=== PATIENT | male | born 1970 | race Caucasian/White ===

== ENCOUNTER 2018-10-06 21:02 | Observation (INO) ==
[2018-10-07] MEDS ORDERED: Acetaminophen 500 MG Tablet PO PRN (04:00)
[2018-10-07] MEDS ORDERED: Regadenoson Inj 0.4 MG/5 ML Syringe IV.PUSH ONE (09:25)
[2018-10-07] MEDS ORDERED: Diatrizoate Meglum/Diatrizoate Sod Liq 9 ML UDC PO ONE (09:25)
[2018-10-07] MEDS ORDERED: amLODIPine 5 MG Tablet PO SCH (09:45)
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
[2018-10-07] MEDS ORDERED: CLORAZEPATE 15 MG PO PRN (10:43)
[2018-10-07] MEDS ORDERED: LORazepam 1 MG Tablet PO PRN (10:43)
[2018-10-07] MEDS ORDERED: FLUoxetine 20 MG Capsule PO SCH (11:15)
[2018-10-07] MEDS ORDERED: Metoprolol Tartrate 50 MG Tablet PO SCH (11:15)
--- NOTE | 2018-10-07 12:18 | ECG ---
Date Performed: 10/07/2018 Time Performed: 04:05:21 PTAGE: 48 years EKG: Sinus rhythm NORMAL ECG NO PREVIOUS TRACING DOCTOR: Chetan Juarez Interpretating Date/Time 10/07/2018 12:17:39
--- NOTE | 2018-10-07 12:24 | TR ---
Date Performed: 10/07/2018 Time Performed: 10:53:39 DOCTOR: Chetan Juarez DRUG LIST: CLINICAL HISTORY: REASON FOR TEST: REASON FOR ENDING: OBSERVATION: CONCLUSION: Lexiscan stress test was performed under standard four minute protocol. Radionuclide was injected one minute prior to ending the test. No electrocardiographic abormalities were present diagnostic of ischemia. Nuclear imaging and interpretation are pending. COMMENTS:
--- NOTE | 2018-10-07 12:32 | NM ---
EXAM DATE: 10/07/2018 12:28 PM EST AGE/SEX: 48 years / Male INDICATIONS:Angina. . Mid chest pain for one day. CLINICAL DATA: This is the patient's initial encounter. Patient reports that signs and symptoms have been present for 1 day and indicates a pain score of 5/10. MEDICAL/SURGICAL HISTORY: Hypertension. None. COMPARISON: No prior exams available for comparison. No external comparison. DOSE: 11 mCi Tc 99m Myoview at rest 35 mCi [id number] at stress 0.4 mg Lexiscan STRESS SYMPTOMS: Dyspnea, facial flush and tingling. EJECTION FRACTION: 51 % TECHNIQUE: The patient underwent pharmacologic stress with infusion of prescribed dose. Continuous ECG tracing was monitored during stress. Gated SPECT imaging was performed after stress and conventi onal SPECT imaging was performed at rest. The examination was performed on a SPECT/CT scanner, both attenuation and non-corrected datasets were reviewed. FINDINGS: Distribution: The maximum perfused segment at stress is in the septal wall. Perfusion Study: The pattern of perfusion at stress is within normal limits. Gated Study: There are intact wall motion and wall thickening without hypokinetic or dyskinetic segm ents. The ejection fraction is calculated at 51%. RISK CATEGORY: Low (<1% Annual Mortality Rate) CONCLUSION: 1. No definite reversible perfusion defects are identified to suggest stress-induced myocardial isch emia. Electronically signed by: Hermilo Aj MD Board Certified Radiologist 10/07/2018 12:31 PM EST
[2018-10-07] MEDS: Gabapentin 400 MG Capsule PO SCH ×2 (12:40→17:39)
[2018-10-07] MEDS ORDERED: Sodium Chlor 0.9% Inj 500 ML IV.SIG STA (16:44)
[2018-10-07 17:33] VITALS: BP 159/102; PULSE 72; RESP 15; TEMP 98.6; O2SAT 96
--- NOTE | 2018-10-07 19:11 | CT ---
EXAM DATE: 10/07/2018 6:58 PM EST AGE/SEX: 48 years / Male INDICATIONS: Right upper quadrant pain for 2 weeks. CLINICAL DATA: This is the patient's initial encounter. Patient reports that signs and symptoms have been present for 2 weeks and indicates a pain score of 10/10. MEDICAL/SURGICAL HISTORY: Hypertension. Fusion, lumbar. Gastric sleeve. ORAL CONTRAST: Prescribed oral contrast ingested. RADIATION DOSE: 18.79 CTDI (mGy) COMPARISON: No prior exams available for comparison. TECHNIQUE: Multiple contiguous axial images were obtained through the abdomen following bolus infusi on of 76 ml Omnipaque 350 (iohexol) nonionic water-soluble contrast as a single exam dose. Prescrib ed oral contrast ingested. Using automated exposure control and adjustment of the mA and/or kV accor ding to patient size, radiation dose was kept as low as reasonably achievable to obtain optimal diagn ostic quality images. DICOM format image data is available electronically for review and comparison. FINDINGS: Lower Lungs: The visualized lower lungs are clear. Liver: The liver has a homogeneous density without space-occupying lesion. There is no dilation of th e biliary tree. Spleen: The spleen is enlarged. Pancreas: Unremarkable without mass or calcification. Kidneys: Normal in size and shape. No evidence of mass or hydronephrosis. Adrenal Glands: Unremarkable. Aorta/Retroperitoneum: The aorta is grossly unremarkable without aneurysmal dilation. No paraaortic or retrocrural adenopathy. Bowel/Mesentery: Bowel flex are seen around the stomach likely from prior gastric bypass type pro cedure. Abdominal Wall: Intact. Bony Structures: There is surgical hardware in the lumbar spine. CONCLUSION: 1. An acute abnormality is not clearly seen. 2. Status post gastric surgery. 3. Nonspecific mild splenomegaly. Electronically signed by: Nitin Starkey MD Board Certified Radiologist 10/07/2018 7:10 PM EST
[2018-10-07] MEDS ORDERED: traZODone 100 MG Tablet PO SCH (21:00)
[2018-10-08] MEDS ORDERED: Divalproex 500 MG ER Tablet PO SCH (09:00)
== END 2018-10-07 21:06 | disposition home or self-care (01) ==
LOC: NEPFCDU 10-07 01:45 → NEDDLT 10-07 01:45
PROVIDERS: ADMIT Internal Medicine Cardiovascular Disease; ATTEND Internal Medicine Cardiovascular Disease
CPT/HCPCS: 74160; 78452; 84484; 93005; 93017; 96361; 96374; A9502; G0378; J2405; J2785; J7040; Q9963; Q9967; Q9969